=== PATIENT | male | born 1950 | race Caucasian/White ===

== ENCOUNTER 2019-04-01 09:37 | Day surgery (SDC) | payer MEDICARE ==
[2019-03-31 15:22] VITALS: BMI 23.8
[2019-04-01 10:35] LABS: Hemoglobin 13.3 g/dL (14.0-18.0)
[2019-04-01] MEDS ORDERED: Lidocaine 1% w/Epinephrine 1:100K 20 ML VIAL ONE (10:54)
[2019-04-01 10:56] LABS: Anion Gap 15 mmol/L (10-20); BUN (Urea Nitrogen) 18 mg/dL (8.4-25.7); Calc. Creatinine Clearance 87 mL/min (70-130); Calcium 9.4 mg/dL (7.8-10.44); Carbon Dioxide 24 mmol/L (23-31); Chloride 103 mmol/L (98-107); Estimated GFR-MDRD Greater than 90; Glucose 106 mg/dL (80-115); Potassium 3.6 mmol/L (3.5-5.1); Sodium 138 mmol/L (136-145)
[2019-04-01] MEDS ORDERED: Fentanyl 250 MCG/5 ML VIAL ONE (10:58)
--- NOTE | 2019-04-02 08:17 | OP ---
DATE OF PROCEDURE: 04/01/2019 PREOPERATIVE DIAGNOSIS: Large right parotid mass. 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 PROCEDURE PERFORMED: Right parotidectomy with facial nerve dissection and facial nerve monitoring for 2 hours. PROCEDURE IN DETAIL: After consent was obtained, the patient was identified, brought to the operating room and placed on the operating table in supine position. General endotracheal anesthesia was obtained, and the patient was positioned for surgery. Facial nerve monitoring electrodes were placed into the lip and eye in standard fashion and documented to be functioning well after connected to the monitor. The patient was prepped, positioned, and draped for surgery. The anticipated lines of dissection were infiltrated with a small amount of lidocaine with 1:200,000 epinephrine. We then delineated the skin crease two fingerbreadths below the angle of the mandible and continued that up until the preauricular sulcus. We made an incision through the skin and subcutaneous tissue with a 15-blade. Hemostasis was obtained with electrocautery. We then elevated a skin flap at the level of the SMAS and parotid fascia. This flap was then suture secured to the anterior facial skin and dissection continued then to identify the trunk of the facial nerve. The preauricular space and anterior border of digastric were delineated and dissected down to the level of the posterior digastric muscle. We then carefully dissected in the area between the pointer cartilage of the external auditory canal and the superior aspect until the trunk of the facial nerve was identified. This was then dissected carefully anteriorly until the main inferior and superior branch were identified. The inferior branch was followed for a short period of time and skeletonized so that we knew where it lay safely so that the mass could safely be dissected. The superior branch had multiple branches that were dissected and displaced posteriorly by the tumor. As the facial nerve was dissected, the tumor was rolled anteriorly until ultimately the tumor was resected and all branches of the facial nerve were intact. Hemostasis was obtained with a bipolar cautery. Once the facial nerve was documented to be functioning well with a nerve stimulation test, Fibrillar and Surgicel were placed in the deep aspect of the wound and the parotid fascia was then re-approximated to the anterior aspect of the sternocleidomastoid and the preauricular tissue. Some Fibrillar Surgicel was then placed between the parotid fascia and the skin to prevent Carol syndrome. The dermis of the skin was reapproximated, and some of the excess skin was removed because the tumor was quite large and created a tissue expansion. The neck skin was then closed with a 5-0 Prolene and the skin in the preauricular area with a 6-0 Prolene in a running fashion. Sterile dressing was applied. The patient was awakened, taken to recovery room in stable condition for discharge home. Job ID: [id number]
== END 2019-04-01 15:20 | disposition home or self-care (01) ==
LOC: SDC 09:37
PROVIDERS: ATTEND Specialist
PROC: 0CTB0ZZ Resection of Right Parotid Duct, Open Approach (ICD-10-PCS; principal; 2019-04-01)
DX: D11.0 Benign neoplasm of parotid gland (principal); I10 Essential (primary) hypertension; F17.200 Nicotine dependence, unspecified, uncomplicated; Z79.82 Long term (current) use of aspirin; Z79.899 Other long term (current) drug therapy
CPT/HCPCS: 36415; 80048; 85014; 85018; 88307; 88331; 93005; 93010; J2001; J3010